=== PATIENT | male | born 1945 | race Caucasian/White ===

== ENCOUNTER 2016-10-21 12:11 | Day surgery (SDC) | payer OTHER ==
[~2016-10-21] VITALS: Ht 185.4 cm; Wt 122.5 kg
[~2016-10-21 12:11] MED LIST: ATENOLOL100 MG PO; FENOFIBRATE54 M1 PO; FINASTERIDE5 MG PO; GLIPIZIDE10 MG PO; HYDROCODON-ACE1 EAC8 PO; LIPITOR80 MG PO; LORCET 5-325 M1 EACH PO; METFORMIN HCL500 MG PO; MOBIC7.5 MG PO; NIASPAN,SLO-N1000 MG PO; PRAZOSIN HCL2 MG PO; ZETIA10 MG PO
[2016-10-21 13:48] LABS: POINT-OF-CARE METER ID UU14174212
[2016-10-21 14:01] LABS: ANION GAP 8 MEQ/L (2-14); CHLORIDE 104 MEQ/L (99-109); GFR ESTIMATE (CALCULATED) 58 mL/min/; GLUCOSE 116 mg/dL (70-99); SAMPLE HEMOLYSIS CHECK 1; SAMPLE ICTERIC CHECK 0; SAMPLE LIPEMIA CHECK 0; SODIUM 140 MEQ/L (136-147); UREA NITROGEN (BUN) 12 mg/dL (9-23)
[2016-10-21 14:05] LABS: POTASSIUM 4.8 MEQ/L (3.7-5.4)
== END 2016-10-21 15:30 | disposition home or self-care (01) ==
LOC: PAIN 12:11 → SDC 14:00 → PAIN 15:30
PROVIDERS: Anesthesiology Pain Medicine
PROC: 015B3ZZ Destruction of Lumbar Nerve, Percutaneous Approach (ICD-10-PCS; principal; 2016-10-21)
DX: M47.816 Spondylosis without myelopathy or radiculopathy, lumbar region (principal); F41.9 Anxiety disorder, unspecified; M51.26 Other intervertebral disc displacement, lumbar region; M51.36 Other intervertebral disc degeneration, lumbar region; Z79.891 Long term (current) use of opiate analgesic; M19.90 Unspecified osteoarthritis, unspecified site; Z68.38 Body mass index [BMI] 38.0-38.9, adult
CPT/HCPCS: 80048; 82948; 93005; J1030; J2250; J3010; S0020

== ENCOUNTER 2016-10-28 10:42 | Day surgery (SDC) | payer OTHER ==
[~2016-10-28] VITALS: Ht 185.4 cm; Wt 122.5 kg
[2016-10-28 11:33] LABS: POINT-OF-CARE METER ID UU14174212
== END 2016-10-28 12:33 | disposition home or self-care (01) ==
LOC: PAIN 10:42 → SDC 11:30 → PAIN 11:30
PROVIDERS: Anesthesiology Pain Medicine
PROC: 015B3ZZ Destruction of Lumbar Nerve, Percutaneous Approach (ICD-10-PCS; principal; 2016-10-28)
DX: M47.816 Spondylosis without myelopathy or radiculopathy, lumbar region (principal); F41.9 Anxiety disorder, unspecified; G89.29 Other chronic pain; M25.569 Pain in unspecified knee; Z79.891 Long term (current) use of opiate analgesic; M51.36 Other intervertebral disc degeneration, lumbar region; M51.26 Other intervertebral disc displacement, lumbar region; E11.9 Type 2 diabetes mellitus without complications; E78.5 Hyperlipidemia, unspecified; I10 Essential (primary) hypertension; E66.3 Overweight; Z68.38 Body mass index [BMI] 38.0-38.9, adult; M48.00 Spinal stenosis, site unspecified; Z79.84 Long term (current) use of oral hypoglycemic drugs
CPT/HCPCS: 82948; J1030; J2250; J3010; S0020

== ENCOUNTER → 2017-10-31 | Outpatient (CLI) | payer MEDICARE | END | disposition home or self-care (01) | LOC: CDC 12:38 | DX: Z01.810 Encounter for preprocedural cardiovascular examination (principal); I45.10 Unspecified right bundle-branch block; R94.31 Abnormal electrocardiogram [ECG] [EKG] | CPT/HCPCS: 93000 ==